=== PATIENT | female | born 1985 | race Caucasian/White ===

== ENCOUNTER 2023-01-31 12:47 | Outpatient (CLI) | payer BC, MEDICAID, SELFPAY ==
[2023-01-31 13:22] LABS: Basophils Absolute Auto 0.1 K/mm3 (0.0-0.1); Basophils Percent Auto 0.6 % (0.2-1.2); Eosinophils Absolute Auto 0.2 K/mm3 (0-0.3); Eosinophils Percent Auto 2.3 % (0-4.4); Hematocrit 36.4 % (37.0-47.0); Hemoglobin 12.1 g/dL (12.0-15.0); Immature Granulocyte Absolute 0.02 K/mm3 (0.00-0.031); Immature Granulocyte Percent A 0.2 % (0-0.5); Lymphocytes Absolute Auto 2.42 K/mm3 (0.9-3.2); Lymphocytes Percent Auto 27.8 % (18.3-44.2); Mean Corpuscular HGB Conc 33.2 g/dl (32-36); Mean Corpuscular Hemoglobin 32.1 pg (26-34); Mean Corpuscular Volume 96.6 fl (80-100); Mean Platelet Volume 9.9 fl (7.4-10.4); Monocytes Absolute Auto 0.6 K/mm3 (0.1-0.6); Monocytes Percent Auto 7.2 % (2.6-8.5); Neutrophils Absolute Auto 5.4 K/mm3 (1.3-6.7); Neutrophils Percent Auto 61.9 % (45.5-73.1); Platelet Count Result 381 k/mm3 (150-375); Red Blood Count 3.77 M/mm3 (4.2-5.4); Red Cell Distribution Width 11.9 % (11.5-14.5); White Blood Count 8.7 K/mm3 (4.5-10.0)
== END 2023-01-31 12:48 | disposition home or self-care (01) ==
PROVIDERS: PCP Family Medicine; Visit Provider Obstetrics & Gynecology
DX: D21.9 Benign neoplasm of connective and other soft tissue, unspecified (principal); Z01.818 Encounter for other preprocedural examination
CPT/HCPCS: 36415; 85025; 86850; 86900; 86901

== ENCOUNTER 2023-02-03 03:39 | Day surgery (SDC) | payer BC, MEDICAID, SELFPAY ==
[2023-01-25 15:31] VITALS: BMI 30.2
--- NOTE | 2023-01-25 15:38 | PC.NURSE ---
Report to the Outpatient Waiting Room, entrance under the green pavilion located off [facility], at time 10:00 on date 02/03/23. Planned Procedure Time: 12:00. Time changes happen often and if your time is changed the preop area will call you the afternoon before. - You and your visitor will be asked to self-screen and do not enter if you have any COVID symptoms. - A mask is optional within the hospital at this time. Patients may have clear liquids (water, carbonated beverages, clear teas, apple juice) until 3 hours prior to surgery (9:00) with a maximum of 20 ounces. - No food from midnight until time of surgery Take the following medications with a SIP of water the morning of surgery: NONE DO NOT STOP ANY OF YOUR OTHER PRESCRIPTION MEDICATIONS PRIOR TO SURGERY ?EXCEPT THE FOLLOWING Medications to discontinue per physician: VITAMINS Date to take last dose: 01/30/23 Please no make-up, nail tamazight, hairspray, perfume, deodorant, or body powder the day of surgery. No jewelry (including any body piercings) or valuables the day of surgery, leave them at home. Please take a shower or bath the night before, or the morning of, surgery with an antibacterial soap. Wear comfortable, loose fitting clothing. - Jewelry must be removed prior to entering the operating room. Rings and piercings that are not removed may be cut off. - The hospital will not accept responsibility for valuables. - Please leave all valuables, including medications, at home the day of surgery. If you are going home after surgery, a licensed hazmat tanker driver must drive you home. - NO public transportation without another adult if you receive anesthesia. - We recommend that an adult stay with you for 24 hours following discharge. - We also recommend that you do not drive, make important decision, drink alcoholic beverages, or take any drugs that were not prescribed by your health care provider for at least 24 hours after your discharge time. Follow any additional instructions given to you from your surgeon. If you or anyone in your household have experienced Covid symptoms in the past week, please notify your surgeon or the nurse liaison at the phone number below for possible testing. Telephone instructions given to PT Topher GARCIA and asked if any additional questions and then verbalized understanding. Patient advised to call surgeon office or pre surgery nurse liaison [phone] if any additional questions.
--- NOTE | 2023-02-02 07:29 | PM.IMHP ---
H&P: HPI History of Present Illness Date/Time: 02/02/23 07:29 Chief Complaint: uterine prolapse Narrative: sh 37-year-old female with uterine prolapse admitted for robotic total vaginal hysterectomy bilateral salpingectomy. She also half for Nexplanon as she does need that. Risks and benefits nonspecific aspiration bleeding transfusion perforation bowel bladder ureters or other internal the need she received the ACOG handout entitled hysterectomy as well as the VG and. She had all questions answered and asked to proceed PMFSH Social History Social History Smoking status: Never smoker Alcohol intake: current Alcohol use details: 2/MONTH Substance use: never Substance use type: does not use Living arrangements: with family Spiritual care concerns: No Meds Home Medications and Allergies Home Medications Medication Instructions Recorded Confirmed Type cholecalciferol (vitamin D3) 125 125 mcg PO DAILY 01/25/23 01/25/23 History mcg (5,000 unit) tablet (Vitamin D3) phentermine 37.5 mg tablet 37.5 mg PO DAILY 01/25/23 01/25/23 History Allergies Allergy/AdvReac Type Severity Reaction Status Date / Time No Known Allergies Allergy Verified 01/25/23 15:32 Exam Const: General: cooperative, healthy appearing, comfortable and average body habitus Nutritional Appearance: average body habitus and well nourished Orientation/consciousness: oriented to person, oriented to place and oriented to time HENMT: Head: normal to inspection Resp: Effort & Inspection: normal respiratory effort Cardio: Rate: regular rate Rhythm: regular rhythm Heart sounds: S1 normal heart sound present and S2 normal heart sound present GI: Inspection: normal to inspection : External Female Exam: normal external appearance Speculum Exam - Vagina: normal appearance of the vagina Speculum Exam - Cervix: normal appearance of the cervix ( second-degree prolapse with changes of previous leeps) Bimanual exam- vagina & uterus: non-tender Bimanual Exam- Adnexa, other: normal adnexae Assessment and Plan Assessment and plan (1) Uterine prolapse: Code(s): N81.4 - Uterovaginal prolapse, unspecified Status: Acute (2) Abnormal cervical Pap smear with positive HPV DNA test: Status: Acute Plan robotic total vaginal hysterectomy with bilateral salpingectomy. Nexplanon be removed as well.
[2023-02-03] VITALS (11 sets, daily range): BP systolic 91–126; BP diastolic 59–81; PULSE 63–98; RESP 12–20; TEMP 36.2–36.9; O2SAT 95–100
--- NOTE | 2023-02-03 00:05 | WPDHPUPDATE1 ---
History and Physical Update Update Date/Time: 02/03/23 00:05 History and Physical has been reviewed, including an updated exam of the patient. There are NO changes in the patient's condition. Risks, benefits, and alternatives have been discussed and questions answered. Patient agrees to proceed with procedure.
--- NOTE | 2023-02-03 00:06 | WPDHPUPDATE1 ---
History and Physical Update Update Date/Time: 02/03/23 00:06 History and Physical has been reviewed, including an updated exam of the patient. There are NO changes in the patient's condition. Risks, benefits, and alternatives have been discussed and questions answered. Patient agrees to proceed with procedure.
[2023-02-03] MEDS: KETOROLAC 15 MG/ML VIAL (*BKC) IV PUSH (11:00)
[2023-02-03] MEDS: LACTATED RINGERS 1,000 ML 30 ML IV CONT ×2 (11:00→12:44)
[2023-02-03] MEDS: ACETAMINOPHEN 500 MG TABLET 1000 MG PO (11:00)
[2023-02-03] MEDS: SCOPOLAMINE 1.5 MG PATCH TRANSDERM (11:05)
--- NOTE | 2023-02-03 11:05 | P.PNAN_ITS ---
Anes - Initial Pre Proc Eval Procedure: Operation Date: 02/03/23 12:00 Proposed Procedures p Robotic Assisted Total Vaginal Hysterectomy with Bilateral Salpingectomy, Removal of Nexplanon Left Arm - Ottoniel Yates MD Date/Time: 02/03/23 11:05 Surgeon: Ottoniel Yates MD Pre Op Diagnosis: 2nd deg prolapse,fibroids, abn pap Patient Data Age: 37 Gender: F Height: 1.57 m Weight: 75.2 kg Last Vital Signs Temp 36.5 C 02/03/23 10:59 Pulse 86 02/03/23 10:59 Resp 14 02/03/23 10:59 BP 110/59 L 02/03/23 10:59 Pulse Ox 100 02/03/23 10:59 O2 Del Method Room Air 02/03/23 10:59 Allergies Allergy/AdvReac Type Severity Reaction Status Date / Time No Known Allergies Allergy Verified 01/25/23 15:32 Home Medications Medication Instructions Recorded Confirmed Type cholecalciferol (vitamin D3) 125 125 mcg PO DAILY 01/25/23 01/25/23 History mcg (5,000 unit) tablet (Vitamin D3) phentermine 37.5 mg tablet 37.5 mg PO DAILY 01/25/23 01/25/23 History hydrocodone 5 mg-acetaminophen 325 1 tablet PO Q4H PRN pain #30 tabs 02/03/23 Rx mg tablet Patient hx anesthesia problems: none Family hx anesthesia problems: none Results Review: All pre-operative results and documents have been reviewed as part of the pre- operative evaluation. [facility] Past Medical History Medical History (Updated 02/03/23 @ 11:05 by Ottoniel Harrison MD) Obesity Surgical History Surgical History (Updated 02/03/23 @ 11:05 by Ottoniel Harrison MD) H/O LEEP Social History Social History Smoking status: Never smoker Alcohol intake: current Alcohol use details: 2/MONTH Substance use: never Substance use type: does not use Living arrangements: with family Spiritual care concerns: No Anes - Eval Final PreProcedure Day of Procedure 02/03/23 11:05 Patient weight: obese Heart: regular rate and rhythm Lungs: clear to auscultation Airway: Mallampati scale class II Neurological: alert and oriented Last oral intake: >/= 8 hours ASA classification: II Emergent: no Anesthetic plan: proceed Anesthesia type and monitoring: general ETT and standard monitoring Results Review: All pre-operative results and documents have been reviewed as part of the pre- operative evaluation. Informed Consent: The patient's anesthetic plan and its attendant risks and benefits were discussed with the patient/family/POA. Questions were solicited and answers provided to the satisfaction of the patient/family/POA.
[2023-02-03] MEDS: ceFAZolin 2 GM/D5W 50 ML 2 GM/50 ML BAG IVPB (11:20)
--- NOTE | 2023-02-03 12:34 | W.PM.PROC2 ---
Procedure Note - Detailed Date of Procedure 02/03/23 Pre-op Diagnosis 2nd deg prolapse,fibroids, abn pap Post-op Diagnosis Same Procedure Performed Robotic total vaginal hysterectomy and bilateral salpingectomy/ removal of Nexplanon Surgeon Ottoniel Yates MD Anesthesia General Indications this is a 37-year-old female with prolapse pelvic discomfort. Findings Enlarged uterus. Normal-appearing ovaries tubes bilaterally. Description of Procedure Patient was prepped draped in the normal sterile fashion placed in dorsal lithotomy position. Under excellent general trach anesthesia weighted speculum placed in posterior fornix vagina. Anterior lip of the cervix grasped with single-tooth tenaculum. The uterus sounded to 10cm. Serial dilatation with fragmented dilators performed followed by passes the 8. SHAKA and the 3. Cold cup. Next the 16 [place] catheter was placed and bladder drained clear urine. The weighted speculum was removed and gloves were changed. A supraumbilical incision made the Veress needle passed in the abdomen. Abdomen filled with CO2 gas [id number]. The 8mm trocar advanced in the abdomen. Downside visualized. No injury seen. Patient placed in Trendelenburg and right and left lateral quadrant incisions made. The 8mm trocars advanced under direct visualization assuring no injury. Right upper quadrant incision made the 8mm trocar advanced under direct visualization assuring no injury. Robot was docked. Attention was turned to the residential substance abuse counselor. The left round ligament was grasped, burned, cut. Anteriorly a bladder flap was formed by sharply dissecting the peritoneum and resecting the peritoneum gently to push the bladder caudally away from the cervix uterus the opposite round ligament was clamped, burned, cut. Next the left fallopian tube was skeletonized away from the ovarian complex by sharply dissecting with the monopolar cautery. This was left attached to the uterine origin a cardenas. This was repeated on the contralateral side to remove the right fallopian tube. The left utero-ovarian ligament was skeletonized to conserve the left ovary. This was clamped, burned, cut and brought to level of previously cut round ligament. In like fashion in conserving the right ovary the utero-ovarian ligament was clamped, burned, cut and brought to the level of the previously cut round ligament. Cardinal broad ligaments on the left were serially skeletonized clamping burning cutting until the uterine vessels could be seen on the left. These were individually clamped, burned, cut. The cardinal broad ligaments on the right were skeletonized clamping burning cutting hugging the cervix and uterus until the uterine vessels could be seen on the right. These were then clamped, burned, cut. Hemostasis was assured and blanching the uterus was noted. A colpotomy incision was made uterus cervix and tubes removed through the vagina. The vagina then closed in continuous running 0 V lock from lateral edge to lateral edge. This was then brought to the midline. Hemostasis was assured and [place] term was placed over the raw surface area. Blood loss at that point was estimated at25cc. The robot was undocked. The gas removed from the abdomen. The incisions closed with 4 Monocryl and glue. Attention was turned to the removal of Nexplanon. Left antecubital area was swabbed with Betadine solution. A stab wound made with 11 blade it popped out in 1 piece glue was used. The patient was awaken as blood loss estimated 25cc for the entire procedure. All sponge, needle, instrument counts were correct. There were no immediate complications noted Estimated Blood Loss 25 Drains No Packing No Pathology Yes Complications No immediate complications Condition Stable Disposition PACU
--- NOTE | 2023-02-03 12:38 | PM.DS ---
DS: Admitting Diagnosis Discharge Date 02/04/2023 Admitting Diagnosis recurrent high-grade dysplasia and uterine prolapse with enlarged uterus DS: Discharge Diagnosis Discharge Diagnosis (1) Abnormal cervical Pap smear with positive HPV DNA test: Status: Acute (2) Uterine prolapse: Code(s): N81.4 - Uterovaginal prolapse, unspecified Status: Acute DS: Summary Hospital Course Reason for hospitalization: patient was admitted for robotic total Total vaginal hysterectomyy and bilateral salpingectomy and removal of Nexplanon. Hospital Course: patient underwent robotic TVH and bilateral salpingectomy. She had the Nexplanon removed as well. Her hospital course unremarkable. She remained afebrile. She was up, voiding without difficulty, ambulating, eating regular diet, in general without complaints. Time Spent with Patient Time attestation: Total time spent providing and/or coordinating discharge services: Exam Const: General: cooperative, healthy appearing and comfortable Nutritional Appearance: average body habitus Orientation/consciousness: oriented to person, oriented to place and oriented to time HENMT: Head: normal to inspection Resp: Effort & Inspection: normal respiratory effort Cardio: Rate: regular rate Rhythm: regular rhythm Heart sounds: S1 normal heart sound present and S2 normal heart sound present GI: Inspection: normal to inspection and incision ( Wounds are clean dry and intact) DS: Data Data Completed and Pending Pending studies at discharge: Pending at discharge 02/03/23 12:11 Surgical [PTH] Routine Discharge Plan Discharge Patient Disposition: Home, Self-Care Discharge Instructions: Remove the Scopolamine patch that was placed behind your ear in 72 hours or less. Wash your hands after touching. Nothing in the vagina for six weeks. Call or return if temperature above 100.4? F, increased abdominal pain, increased vaginal bleeding or any new problems. Patient Instructions: Laparoscopic Hysterectomy (DC) Stand Alone Forms: General Discharge Instructions Follow-up/Referrals: Ottoniel Redman MD [Physician] - 2 Weeks Discharge Medications: New hydrocodone-acetaminophen 5-325 mg tablet 1 tablet PO Q4H PRN (Reason: pain) Qty: 30 0RF Continued phentermine 37.5 mg Tablet 37.5 mg PO DAILY Rx Instructions: must administer 30 minutes before or 1-2 hours after breakfast cholecalciferol (vitamin D3) [Vitamin D3] 125 mcg (5,000 unit) Tablet 125 mcg PO DAILY
[2023-02-03] MEDS: fentaNYL CITRATE INJ (*CRX) 100 MCG/2 ML VIAL 25 MCG IV PUSH ×4 (12:54→13:22)
--- NOTE | 2023-02-03 14:27 | PC.NURSE ---
This patient, Day Donaldson, was received from PACU on 02/03/23 at 1427. Patient/family oriented to unit policies and routines
[2023-02-03] MEDS: KETOROLAC 30 MG/ML VIAL (*BKC) IV PUSH (15:01)
[2023-02-03] MEDS: DEXTROSE 5%/LACTATED RINGERS 1,000 ML 125 ML IV CONT (15:01)
[2023-02-03] MEDS: IBUPROFEN 600 MG TABLET PO (23:29)
[2023-02-03] MEDS: HYDROcodone/acetaminophen (*CRX) 5-325 MG TABLET 1 TAB PO (23:30)
[2023-02-04 04:58] VITALS: BP 104/61; PULSE 76; RESP 18; TEMP 37.2; O2SAT 100
[2023-02-04] MEDS: IBUPROFEN 600 MG TABLET PO ×2 (05:20→11:21)
[2023-02-04] MEDS: HYDROcodone/acetaminophen (*CRX) 5-325 MG TABLET 1 TAB PO ×2 (05:20→11:21)
[2023-02-04 05:31] LABS: Basophils Percent Auto 0.1 % (0.2-1.2); Eosinophils Percent Auto 0.1 % (0-4.4); Hematocrit 38.3 % (37.0-47.0); Hemoglobin 12.8 g/dL (12.0-15.0); Immature Granulocyte Absolute 0.06 K/mm3 (0.00-0.031); Immature Granulocyte Percent A 0.4 % (0-0.5); Lymphocytes Absolute Auto 1.67 K/mm3 (0.9-3.2); Lymphocytes Percent Auto 11.9 % (18.3-44.2); Mean Corpuscular HGB Conc 33.4 g/dl (32-36); Mean Corpuscular Hemoglobin 31.8 pg (26-34); Mean Platelet Volume 9.8 fl (7.4-10.4); Monocytes Absolute Auto 0.9 K/mm3 (0.1-0.6); Monocytes Percent Auto 6.7 % (2.6-8.5); Neutrophils Absolute Auto 11.4 K/mm3 (1.3-6.7); Neutrophils Percent Auto 80.8 % (45.5-73.1); Platelet Count Result 428 k/mm3 (150-375); Red Blood Count 4.03 M/mm3 (4.2-5.4); Red Cell Distribution Width 11.6 % (11.5-14.5); White Blood Count 14.1 K/mm3 (4.5-10.0)
--- NOTE | 2023-02-04 07:57 | WPDANESPN ---
Anes - Prog Note Post-Op Date/Time: 02/04/23 07:57 Cardiovascular status: normal Respiratory status: normal Airway patency: baseline Mental status: baseline Post-Op hydration status: normal Vital Signs: Last Vital Signs Temp 37.2 C 02/04/23 04:58 Pulse 76 02/04/23 04:58 Resp 18 02/04/23 04:58 BP 104/61 02/04/23 04:58 Pulse Ox 100 02/04/23 04:58 O2 Del Method Room Air 02/04/23 04:58 O2 Flow Rate 8 02/03/23 12:49 Pain Score (VAS): 09/02 I/O: Intake & Output 02/03/23 02/03/23 02/04/23 15:59 23:59 07:59 Intake Total 1500 1000 700 Output Total 70 1850 Balance 1430 1000 -1150 Laboratory Tests 02/04/23 05:07 02/04/23 05:07 WBC 14.1 H RBC 4.03 L Hgb 12.8 Hct 38.3 MCV 95.0 MCH 31.8 MCHC 33.4 RDW 11.6 Plt Count 428 H MPV 9.8 Immature Gran % (Auto) 0.4 Neut % (Auto) 80.8 H Lymph % (Auto) 11.9 L [place] % (Auto) 6.7 Eos % (Auto) 0.1 Baso % (Auto) 0.1 L Lymph # (Auto) 1.67 [place] # (Auto) 0.9 H Eos # (Auto) 0.0 Baso # (Auto) 0.0 Abs Immat Gran (auto) 0.06 H Absolute Neuts (auto) 11.4 H Absolute Nucleated RBC 0.0 Nucleated RBC % 0.0 Post-procedural complaints: none Patient Feedback: Patient satisfied with anesthetic care.
--- NOTE | 2023-02-04 08:19 | PM.GYNPNOP ---
[employer] - A/P Assessment and plan (1) Abnormal cervical Pap smear with positive HPV DNA test: Status: Acute Assessment and Plan: A: POD#1, doing well. P: Home to f/u 2 weeks. (2) Uterine prolapse: Code(s): N81.4 - Uterovaginal prolapse, unspecified Status: Acute Postoperative Procedures: Procedures Operation Date: 02/03/23 12:00 Actual Procedure Side Surgeon p Robotic Assisted Total Vaginal Hysterectomy with Bilateral Salpingectomy, Removal of Nexplanon Left Arm Not Applicable Ottoniel Yates MD Postoperative day: 1 Time Spent With Patient Time with patient: less than 15 minutes [employer] DES[employer]- PN:Subj Post-Op Subjective Date/time seen: 02/04/23 08:19 Interval history: Pain OK. Tolerating diet. Voiding. Would like to go home. Exam Narrative: AVSS I/O OK ABD soft, nontender. Incisions c/d/i. EXT nontender [employer] DESIGNER - PN: Obj Data Vital Signs Vital Signs: Vital Signs - 24 hr 02/03/23 10:59 02/03/23 12:49 02/03/23 13:00 Temperature 36.5 C 36.2 C L Pulse Rate 86 90 79 Respiratory Rate 14 16 16 Blood Pressure 110/59 L 91/71 L 110/67 Pulse Oximetry 100 100 100 Oxygen Delivery Room Air Simple Face Mask Room Air Oxygen Flow Rate 8 02/03/23 13:15 02/03/23 13:30 02/03/23 13:45 Temperature Pulse Rate 67 65 77 Respiratory Rate 12 12 14 Blood Pressure 114/68 115/75 118/75 Pulse Oximetry 99 95 98 Oxygen Delivery Room Air Room Air Room Air Oxygen Flow Rate 02/03/23 14:00 02/03/23 14:15 02/03/23 14:30 Temperature 36.7 C Pulse Rate 65 63 98 Respiratory Rate 12 14 16 Blood Pressure 125/81 126/80 114/71 Pulse Oximetry 100 95 98 Oxygen Delivery Room Air Room Air Oxygen Flow Rate 02/03/23 14:30 02/03/23 23:10 02/03/23 19:49 Temperature 36.7 C 36.9 C 36.7 C Pulse Rate 86 87 77 Respiratory Rate 20 16 14 Blood Pressure 117/63 107/62 104/63 Pulse Oximetry 100 100 97 Oxygen Delivery Oxygen Flow Rate 02/03/23 23:10 02/04/23 04:58 02/04/23 04:58 Temperature 37.2 C Pulse Rate 87 76 76 Respiratory Rate 16 18 18 Blood Pressure 104/61 Pulse Oximetry 100 100 100 Oxygen Delivery Room Air Room Air Oxygen Flow Rate Intake/Output Intake/Output: Intake & Output 02/01/23 02/02/23 02/03/23 02/04/23 23:59 23:59 23:59 23:59 Intake Total 2500 700 Output Total 70 1850 Balance 2430 -1150 Meds/Results Medications: Active Medications Generic Name Dose Route Start Last Admin Trade Name Freq PRN Reason Stop Dose Admin Hydrocodone Bitart/Acetaminophen 1 tab 02/03/23 14:17 Hydrocodone/Acetaminophen (*Crx) 10-325 Mg Tablet PO Q3H PRN Pain Rated 6 or Greater Hydrocodone Bitart/Acetaminophen 1 tab 02/03/23 14:17 02/04/23 05:20 Hydrocodone/Acetaminophen (*Crx) 5-325 Mg Tablet PO 1 tab Q3H PRN Administration Pain Rated 5 or Less Docusate Sodium 100 mg 02/03/23 17:00 02/03/23 18:37 Docusate Sodium 100 Mg Capsule PO Not Given BID [facility] Enoxaparin Sodium 40 mg 02/04/23 09:00 Enoxaparin 40 Mg/0.4 Ml Syringe SUB-Q DAILY [facility] Ibuprofen 600 mg 02/03/23 14:17 02/04/23 05:20 Ibuprofen 600 Mg Tablet PO 600 mg Q6H PRN Administration Cramping Ketorolac Tromethamine 30 mg 02/03/23 14:17 02/03/23 15:01 Ketorolac 30 Mg/Ml Vial (*Bkc) IV PUSH 02/08/23 14:16 30 mg Q6H PRN Administration Pain Rated 4-6 Naloxone HCl 0.1 mg 02/03/23 14:17 Naloxone Hcl 0.4 Mg/Ml Vial IV PUSH Q2M PRN Respiratory rate less than 10 Ondansetron HCl 4 mg 02/03/23 14:17 Ondansetron Inj 4 Mg/2 Ml Vial IV PUSH Q6H PRN Nausea And Vomiting Simethicone 80 mg 02/03/23 14:17 Simethicone 80 Mg Tab.Chew PO Q2H PRN Gas Labs 02/04/23 05:07 Labs: Laboratory Results - last 24 hr 02/04/23 05:07 WBC 14.1 H RBC 4.03 L Hgb 12.8 Hct 38.3 MCV 95.0 MCH 31.8 MCHC 33.4 RDW 11.6 Plt Count 428 H MPV 9.8 Immat[place]
--- NOTE | 2023-02-04 08:21 | PM.DS ---
DS: Admitting Diagnosis Discharge Date 02/04/23 Admitting Diagnosis Abnormal pap Pelvic organ prolapse DS: Discharge Diagnosis Discharge Diagnosis (1) Abnormal cervical Pap smear with positive HPV DNA test: Status: Acute (2) Uterine prolapse: Code(s): N81.4 - Uterovaginal prolapse, unspecified Status: Acute DS: Summary Hospital Course Hospital Course: Admitted to the hospital on the day of scheduled surgery. She underwent robotic assisted TVHBS, did well postoperatively, and was able to go home on POD1. Time Spent with Patient Time attestation: Total time spent providing and/or coordinating discharge services: DS: Data Data Completed and Pending Pending studies at discharge: Pending at discharge 02/03/23 12:11 Surgical [PTH] Routine Labs on day of discharge: Labs from last 24 hours 02/04/23 05:07 WBC 14.1 H RBC 4.03 L Hgb 12.8 Hct 38.3 MCV 95.0 MCH 31.8 MCHC 33.4 RDW 11.6 Plt Count 428 H MPV 9.8 Immature Gran % (Auto) 0.4 Neut % (Auto) 80.8 H Lymph % (Auto) 11.9 L [place] % (Auto) 6.7 Eos % (Auto) 0.1 Baso % (Auto) 0.1 L Lymph # (Auto) 1.67 [place] # (Auto) 0.9 H Eos # (Auto) 0.0 Baso # (Auto) 0.0 Abs Immat Gran (auto) 0.06 H Absolute Neuts (auto) 11.4 H Absolute Nucleated RBC 0.0 Nucleated RBC % 0.0 Discharge Plan Discharge Patient Disposition: Home, Self-Care Discharge Instructions: Remove the Scopolamine patch that was placed behind your ear in 72 hours or less. Wash your hands after touching. Nothing in the vagina for six weeks. Call or return if temperature above 100.4? F, increased abdominal pain, increased vaginal bleeding or any new problems. Stand Alone Forms: General Discharge Instructions Follow-up/Referrals: Ottoniel Redman MD [Physician] - 2 Weeks Discharge Medications: New hydrocodone-acetaminophen 5-325 mg tablet 1 tablet PO Q4H PRN (Reason: pain) Qty: 30 0RF Continued phentermine 37.5 mg Tablet 37.5 mg PO DAILY Rx Instructions: must administer 30 minutes before or 1-2 hours after breakfast cholecalciferol (vitamin D3) [Vitamin D3] 125 mcg (5,000 unit) Tablet 125 mcg PO DAILY
[2023-02-04 08:30] VITALS: BP 107/72; PULSE 83; RESP 20; TEMP 36.6; O2SAT 97
[2023-02-04] MEDS: ENOXAPARIN 40 MG/0.4 ML SYRINGE SUB-Q (09:33)
[2023-02-04] MEDS: DOCUSATE SODIUM 100 MG CAPSULE PO (09:33)
== END 2023-02-04 12:35 | disposition home or self-care (01) ==
LOC: ANHSURGERY 11:12 → ANHOB2 14:20
PROVIDERS: PCP Family Medicine; Visit Provider Obstetrics & Gynecology
PROC: (CPT 11982; principal; 2023-02-03 12:00)
DX: N81.2 Incomplete uterovaginal prolapse (principal); Z30.46 Encounter for surveillance of implantable subdermal contraceptive; N80.03 Adenomyosis of the uterus; E66.9 Obesity, unspecified; Z68.30 Body mass index [BMI] 30.0-30.9, adult
CPT/HCPCS: 11982; 58552; S2900; 36415; 85025; 88307; 99199; A9270; J0690; J1100; J1650; J1885; J2250; J2405; J2704; J2710; J3010; J7030; J7120; J7121